=== PATIENT | female | born 1985 | race Caucasian/White ===

== ENCOUNTER 2019-04-12 14:06 | Emergency (ER) | payer OTHER ==
[~2019-04-12] VITALS: Ht 162.6 cm; Wt 56.4 kg
[2019-04-12 14:08] VITALS: BP 146/63; PULSE 59; RESP 18; Ht 162.6 cm; Wt 56.4 kg
[2019-04-12] MEDS ORDERED: morphine 2 MG INJ IV STA (14:44)
[2019-04-12] MEDS ORDERED: FAMOTIDINE 20 MG INJ IV STA (14:44)
[2019-04-12] MEDS ORDERED: ONDANSETRON 4 MG INJ IV STA (14:44)
[2019-04-12] MEDS ORDERED: ACET500C5 PO (16:13)
[2019-04-12] MEDS ORDERED: PANT20TA2 PO (16:13)
[2019-04-12] MEDS ORDERED: ONDA8TAB14 PO (16:13)
--- NOTE | 2019-04-12 16:17 | ERD ---
ER Documentation Chief Complaint Chief Complaint abd pain x 1 week with nausea HPI 34-year-old female presents with left epigastric pain for last week associate with nausea. She has vomiting, lower abdominal pain, right-sided abdominal pain. Patient states that she has a history of gastritis. Patient denies any family history, inciting events. Patient denies . ROS All systems reviewed and are negative except as per history of present illness. Medications Home Meds Active Scripts Ondansetron (Ondansetron Odt) 8 Mg Tab.rapdis, 8 MG PO Q6H PRN for NAUSEA AND/OR VOMITING, #10 TAB Prov:BRAD THOMPSON MD 04/12/19 Acetaminophen* (Tylophen*) 500 Mg Capsule, 1 CAP PO Q6H PRN for PAIN AND OR ELEVATED TEMP, #15 CAP Prov:BRAD THOMPSON MD 04/12/19 Pantoprazole* (Protonix*) 20 Mg Tablet.dr, 20 MG PO DAILY, #30 TAB Prov:BRAD THOMPSON MD 04/12/19 PMhx/Soc Medical and Surgical Hx: pt denies Medical Hx History of Surgery: Yes (left breast) Hx Alcohol Use: No Hx Substance Use: No Hx Tobacco Use: No Smoking Status: Never smoker FmHx Family History: No diabetes, No coronary disease, No other Physical Exam Vitals Vital Signs Date Temp Pulse Resp B/P (MAP) Pulse Ox O2 O2 Flow FiO2 Time Delivery Rate 04/12/19 99.1 59 18 146/63 99 14:08 (90) Physical Exam Const: No acute distress Head: Atraumatic Eyes: Normal Conjunctiva ENT: Normal External Ears, Nose and Mouth. Neck: Full range of motion. No meningismus. Resp: Clear to auscultation bilaterally Cardio: Regular rate and rhythm, no murmurs Abd: Soft, mild epigastric tenderness. No tension McBurney's point no Gonzales sign. No rebound or masses. Non distended. Normal bowel sounds Skin: No petechiae or rashes Back: No midline or flank tenderness Ext: No cyanosis, or edema Neur: Awake and alert Psych: Normal Mood and Affect Result Diagram: 04/12/19 1457 04/12/19 1457 Results 24 hrs Laboratory Tests Test 04/12/19 14:57 04/12/19 15:03 White Blood Count 10.0 10^3/ul Red Blood Count 4.52 10^6/ul Hemoglobin 13.3 g/dl Hematocrit 40.5 % Mean Corpuscular Volume 89.6 fl Mean Corpuscular Hemoglobin 29.4 pg Mean Corpuscular Hemoglobin Concent 32.8 g/dl Red Cell Distribution Width 13.2 % Platelet Count 294 10^3/UL Mean Platelet Volume 8.9 fl Immature Granulocytes % 0.200 % Neutrophils % % Lymphocytes % % Monocytes % % Eosinophils % % Basophils % % Nucleated Red Blood Cells % 0.0 /100WBC Immature Granulocytes # 0.020 10^3/ul Neutrophils # 10^3/ul Lymphocytes # 10^3/ul Monocytes # 10^3/ul Eosinophils # 10^3/ul Basophils # 10^3/ul Nucleated Red Blood Cells # 10^3/ul Urine Color STRAW Urine Clarity SLIGHTLY CLOUDY Urine pH 6.0 Urine Specific [place] 1.004 Urine Ketones NEGATIVE mg/dL Urine Nitrite NEGATIVE mg/dL Urine Bilirubin NEGATIVE mg/dL Urine Urobilinogen NEGATIVE mg/dL Urine Leukocyte Esterase NEGATIVE Mariano/ul Urine Microscopic RBC 1 /HPF Urine Microscopic WBC 0 /HPF Urine Squamous Epithelial Cells FEW /HPF Urine Bacteria FEW /HPF Urine Hemoglobin NEGATIVE mg/dL Urine Glucose NEGATIVE mg/dL Urine Total Protein NEGATIVE mg/dl Sodium Level 140 mmol/L Potassium Level 4.1 mmol/L Chloride Level 104 mmol/L Carbon Dioxide Level 27 mmol/L Anion Gap 9 Blood Urea Nitrogen 13 mg/dl Creatinine 0.76 mg/dl Est Glomerular Filtrat Rate mL/min > 60 mL/min Glucose Level 90 mg/dl Calcium Level 9.4 mg/dl Total Bilirubin 0.4 mg/dl Direct Bilirubin 0.00 mg/dl Indirect Bilirubin 0.4 mg/dl Aspartate Amino Transf (AST/SGOT) 22 IU/L Alanine Aminotransferase (ALT/SGPT) 27 IU/L Alkaline Phosphatase 64 IU/L Total Protein 7.8 g/dl Albumin 4.4 g/dl Globulin 3.40 g/dl Albumin/Globulin Ratio 1.29 Lipase 82 U/L POC Beta HCG, Qualitative NEGATIVE Current Medications Medications Dose Sig/Roger Start Time Status Last (Trade) Ordered Route PRN Stop Time Admin Dose Reason Admin Morphine 2 mg ONCE STAT 04/12/19 DC 04/12/19 Sulfate IV 14:44 15:10 (morphine) 04/12/19 14:46 Ondansetron 4 mg ONCE STAT 04/12/19 DC 04/12/19 HCl (Zofran IV 14:44 15:02 Inj) 04/12/19 14:46 Famotidine 20 mg ONCE STAT 04/12/19 DC 04/12/19 (Pepcid Iv) IV 14:44 15:02 04/12/19 14:46 Procedures/MDM CBC, CMP, lipase, urine and hCG negative for acute abnormalities. Patient was given Pepcid 20 mg IV, morphine 2 more grams IV, Zofran. Patient had a benign abdomen and felt much better after observation treatment. Patient has no signs of appendicitis, obstruction, surgical abdomen, hepatobiliary disease, additional concerning signs or symptoms. Will treat with Protonix, Tylenol, recommendations for bland diet, primary care follow-up and return precautions. Patient was advised she may need specialty evaluation for persistent symptoms despite treatment. The patient was stable with no new complaints during the ER course. Clinically, there is no current evidence to suggest meningitis, sepsis, acute abdomen, pneumonia, stroke, acute coronary syndrome, pulmonary embolism, aortic dissection or any other emergent condition appearing to require further evaluation or hospitalization. Patient counseled regarding my diagnostic impression and care plan. Prior to discharge all questions answered. Pt agrees with treatment plan and understands strict return precautions. Pt is instructed to follow up with primary care provider within 24-48 hours. Precautionary instructions provided including instructions to return to the ER if not improving or for any worsening or changing symptoms or concerns. Disclaimer: Inadvertent spelling and grammatical errors are likely due to EHR/dictation software use and do not reflect on the overall quality of patient care. Also, please note that the electronic time recorded on this note does not necessarily reflect the actual time of the patient encounter. Departure Diagnosis: Primary Impression: Gastritis Gastritis type: unspecified gastritis Chronicity: unspecified Gastritis bleeding: without bleeding Qualified Codes: K29.70 - Gastritis, unspecified, without bleeding Condition: Stable Patient Instructions: Gastritis (Adult) [facility] Usted se guzman hecho un examen mdico de control que le indica que no est en lauren condicin que requiera tratamiento urgente en el Departamento de Emergencia. Un estudio ms profundo y el tratamiento de wolfe condicin pueden esperar sin ningn riesgo hasta que usted sea atendida/o en el consultorio de wolfe mdico o lauren clnica. Es responsabilidad suya arreglar lauren rachid para el seguimiento del jeremiah. MANEJO DE CONDICIONES NO URGENTES EN EL FUTURO 1) Si usted tiene un mdico de atencin primaria: Usted debera llamar a wolfe mdico de atencin primaria antes de venir al departamento de emergencia. Despus de las horas de consultorio, wolfe doctor o wolfe asociado/a est disponible por telfono. El mdico o enfermero de sherice en el servicio telefnico puede asesorarle por brandon medio para atender el problema, o jeremiah contrario se puede programar lauren rachid. 2) Si usted no tiene un mdico de atencin primaria: Llame al mdico o clnica de referencia que aparece abajo derrick las horas de consultorio para hacer lauren rachid para que le vean. CLINICAS: [facility] [phone] [facility] [phone] [facility]. [facility] [phone] [address] [facility]. [facility] [phone] [facility] [place] [phone] [facility] [phone] [address] Additional Instructions: Labs normal today. Suspect gastritis. Eat bland foods. Avoid acidic or spicy foods or alcohol or ibuprofen. See primary doctor for follow-up and possible specialty referral. Recheck otherwise for fevers, vomiting, blood, worsening pain, new worsening symptoms. BRAD THOMPSON MD Apr 12, 2019 16:17
== END 2019-04-12 16:50 | disposition home or self-care (01) ==
LOC: FTE 14:06
DX: K29.70 Gastritis, unspecified, without bleeding (principal)
CPT/HCPCS: 36415; 80053; 81001; 81003; 81025; 83690; 85025; 96374; 96375; 99284; J2270; J2405

== ENCOUNTER 2019-04-18 16:43 | Emergency (ER) | payer OTHER ==
[~2019-04-18] VITALS: Ht 154.9 cm; Wt 55.9 kg
[~2019-04-18 16:43] MED LIST: ACET500C5 PO; MAGN400O19 PO; METO10TA92 PO; ONDA8TAB14 PO; PANT20TA2 PO; TRAM50TA2 PO
[2019-04-18 16:55] VITALS: Ht 154.9 cm; Wt 55.9 kg
[2019-04-18] MEDS ORDERED: ONDANSETRON 4 MG INJ IV STA (17:35)
[2019-04-18] MEDS ORDERED: SOD CHLORIDE 0.9% 1,000 ML IV STA (17:35)
[2019-04-18] MEDS ORDERED: morphine 2 MG INJ IV STA (17:35)
[2019-04-18] MEDS ORDERED: FAMOTIDINE 20 MG INJ IV STA (17:35)
[2019-04-18] MEDS ORDERED: IOHEXOL 300MG/ML 150 ML BTL ONE (18:42)
[2019-04-18] MEDS ORDERED: SOD CHLORIDE 0.9% 100 ML ONE (18:42)
[2019-04-18] MEDS ORDERED: HYDROmorphONE 0.5 MG/0.5 ML SYG IV STA ×2 (18:47→19:52)
--- NOTE | 2019-04-18 19:59 | ERD ---
ER Documentation Chief Complaint Chief Complaint epigastric pain & nausea after eating to day, dx:gastritis last week, HPI 34-year-old female presents with epigastric pain worsening over the last day. She was seen by me for gastritis approximately 5 days ago. She had normal labs at that time she is taking Protonix twice a day as directed by her primary doctor. She has a gastroenterology appointment pending but not until June. She denies any vomiting, fevers, lower abdominal pain. Pain is burning and worse after eating. Patient has a remote history of gastritis. She has an additional complaint of no bowel movement for 3 days and last bowel movement was dark. ROS All systems reviewed and are negative except as per history of present illness. Medications Home Meds Active Scripts Metoclopramide* (Reglan*) 10 Mg Tablet, 10 MG PO Q6 PRN for NAUSEA AND/OR VOMITING, #20 TAB Prov:BRAD THOMPSON MD 04/18/19 Tramadol HCl (Tramadol HCl) 50 Mg Tablet, 50 MG PO Q4 PRN for PAIN, #18 TAB Prov:BRAD THOMPSON MD 04/18/19 Magnesium Hydroxide* (Milk Of Magnesia*) 400 Mg/5 Ml Oral.susp, 30 ML PO BID for 7 Days, ML Prov:BRAD THOMPSON MD 04/18/19 Ondansetron (Ondansetron Odt) 8 Mg Tab.rapdis, 8 MG PO Q6H PRN for NAUSEA AND/OR VOMITING, #10 TAB Prov:BRAD THOMPSON MD 04/12/19 Acetaminophen* (Tylophen*) 500 Mg Capsule, 1 CAP PO Q6H PRN for PAIN AND OR ELEVATED TEMP, #15 CAP Prov:BRAD THOMPSON MD 04/12/19 Pantoprazole* (Protonix*) 20 Mg Tablet.dr, 20 MG PO DAILY, #30 TAB Prov:BRAD THOMPSON MD 04/12/19 Allergies Allergies: Coded Allergies: No Known Allergy (Unverified , 04/18/19) PMhx/Soc History of Surgery: Yes (left breast) Hx Miscellaneous Medical Probl: Yes (hepatits A) Hx Alcohol Use: No Hx Substance Use: No Hx Tobacco Use: No Smoking Status: Never smoker FmHx Family History: No diabetes, No coronary disease, No other Physical Exam Vitals Vital Signs Date Temp Pulse Resp B/P (MAP) Pulse Ox O2 O2 Flow FiO2 Time Delivery Rate 04/18/19 98.3 72 17 118/76 99 Room Air 19:16 (90) 04/18/19 98.2 70 18 147/79 100 16:55 (101) Physical Exam Const: No acute distress Head: Atraumatic Eyes: Normal Conjunctiva ENT: Normal External Ears, Nose and Mouth. Neck: Full range of motion. No meningismus. Resp: Clear to auscultation bilaterally Cardio: Regular rate and rhythm, no murmurs Abd: Soft, under epigastric area. No tenderness McBurney's point no Gonzales sign. No rebound or masses. Non distended. Normal bowel sounds Skin: No petechiae or rashes Back: No midline or flank tenderness Ext: No cyanosis, or edema Neur: Awake and alert Psych: Normal Mood and Affect Result Diagram: 04/18/19 1744 04/18/19 1744 Results 24 hrs Laboratory Tests Test 04/18/19 17:44 04/18/19 17:50 04/18/19 19:42 White Blood Count 10.1 10^3/ul Red Blood Count 4.49 10^6/ul Hemoglobin 13.0 g/dl Hematocrit 40.2 % Mean Corpuscular Volume 89.5 fl Mean Corpuscular Hemoglobin 29.0 pg Mean Corpuscular Hemoglobin Concent 32.3 g/dl Red Cell Distribution Width 13.1 % Platelet Count 268 10^3/UL Mean Platelet Volume 8.8 fl Immature Granulocytes % 0.100 % Neutrophils % % Lymphocytes % % Monocytes % % Eosinophils % % Basophils % % Nucleated Red Blood Cells % 0.0 /100WBC Immature Granulocytes # 0.010 10^3/ul Neutrophils # 10^3/ul Lymphocytes # 10^3/ul Monocytes # 10^3/ul Eosinophils # 10^3/ul Basophils # 10^3/ul Nucleated Red Blood Cells # 10^3/ul Sodium Level 139 mmol/L Potassium Level 4.3 mmol/L Chloride Level 107 mmol/L Carbon Dioxide Level 25 mmol/L Anion Gap 7 Blood Urea Nitrogen 13 mg/dl Creatinine 0.83 mg/dl Est Glomerular Filtrat Rate mL/min > 60 mL/min Glucose Level 104 mg/dl Calcium Level 9.2 mg/dl Total Bilirubin 0.4 mg/dl Direct Bilirubin 0.00 mg/dl Indirect Bilirubin 0.4 mg/dl Aspartate Amino Transf (AST/SGOT) 21 IU/L Alanine Aminotransferase (ALT/SGPT) 22 IU/L Alkaline Phosphatase 63 IU/L Total Protein 7.4 g/dl Albumin 4.1 g/dl Globulin 3.30 g/dl Albumin/Globulin Ratio 1.24 Lipase 123 U/L Stool Occult Blood NEGATIVE POC Beta HCG, Qualitative NEGATIVE Current Medications Medications Dose Sig/Roger Start Time Status Last (Trade) Ordered Route PRN Stop Time Admin Dose Reason Admin Sodium 1,000 ml @ Q1H STAT 04/18/19 DC 04/18/19 Chloride 1,000 mls/hr IV 17:35 04/18/19 17:49 18:34 Morphine 2 mg ONCE STAT 04/18/19 DC 04/18/19 Sulfate IV 17:35 04/18/19 17:49 (morphine) 17:36 Ondansetron 4 mg ONCE STAT 04/18/19 DC 04/18/19 HCl (Zofran IV 17:35 04/18/19 17:49 Inj) 17:36 Famotidine 20 mg ONCE STAT 04/18/19 DC 04/18/19 (Pepcid Iv) IV 17:35 04/18/19 17:49 17:36 IV Flush 10 ml STK-MED 04/18/19 DC 04/18/19 (NS 10 ml) ONCE .ROUTE 18:42 04/18/19 19:00 18:43 Sodium 100 ml @ ud STK-MED 04/18/19 DC 04/18/19 Chloride ONCE .ROUTE 18:42 04/18/19 19:00 18:43 Iohexol 150 ml STK-MED 04/18/19 DC 04/18/19 (Omnipaque ONCE .ROUTE 18:42 04/18/19 18:59 300mg/ ml) 18:43 0.5 mg ONCE STAT 04/18/19 DC 04/18/19 Hydromorphone IV 18:47 04/18/19 19:08 HCl 18:48 (Dilaudid) 0.5 mg ONCE STAT 04/18/19 DC Hydromorphone IV 19:52 04/18/19 HCl 19:53 (Dilaudid) 10 mg ONCE ONCE 04/18/19 Metoclopramid IV 20:00 04/18/19 e HCl 20:01 (Reglan) Procedures/MDM CBC is normal. CMP shows no acute abnormalities. hCG is negative. Patient was given Pepcid 20 mg IV, 1 L normal saline IV. She was given morphine milligrams and Dilaudid 0.5 mg IV for pain throughout the ED course. Given Zofran or Reglan for nausea as well. H. pylori sent upon patient request. Patient presents with epigastric pain worsening over the last 3 days. Is been the last week. CT abdomen pelvis with IV contrast performed for pain despite proton pump inhibitors centimeters normal by the radiologist. Patient has no sign of active bleeding as a guaiac test of the stool is negative. Patient signs and symptoms consistent with gastritis. Will add Reglan as well as milk of magnesia and tramadol for epigastric pain. She is advised to follow-up with primary doctor and continue follow-up with gastroenterology. She should return for fevers, vomiting, blood, new worsening symptoms or with primary doctor and gastroenterology as directed. The patient was stable with no new complaints during the ER course. Clinically, there is no current evidence to suggest meningitis, sepsis, acute abdomen, pneumonia, stroke, acute coronary syndrome, pulmonary embolism, aortic dissection or any other emergent condition appearing to require further evaluation or hospitalization. Patient counseled regarding my diagnostic impression and care plan. Prior to discharge all questions answered. Pt agrees with treatment plan and understands strict return precaution s. Pt is instructed to follow up with primary care provider within 24-48 hours. Precautionary instructions provided including instructions to return to the ER if not improving or for any worsening or changing symptoms or concerns. Disclaimer: Inadvertent spelling and grammatical errors are likely due to EHR/dictation software use and do not reflect on the overall quality of patient care. Also, please note that the electronic time recorded on this note does not necessarily reflect the actual time of the patient encounter. Departure Diagnosis: Primary Impression: Abdominal pain Abdominal location: epigastric Qualified Codes: R10.13 - Epigastric pain Condition: Stable Patient Instructions: Abdominal Pain, Gastritis Vs. Ulcer Referrals: DOCTOR,NOT ON STAFF (PCP) Additional Instructions: Symptoms consistent with gastritis. All examinations normal today. See gastroenterology as scheduled. Recheck for blood, fevers, vomiting, new worsening symptoms. BRAD THOMPSON MD Apr 18, 2019 19:59
[2019-04-18] MEDS ORDERED: METOCLOPRAMIDE 10 MG INJ IV ONE (20:00)
[2019-04-18 21:07] VITALS: BP 116/73; PULSE 64; RESP 16
== END 2019-04-18 21:14 | disposition home or self-care (01) ==
LOC: FTE 16:43
DX: R10.13 Epigastric pain (principal); R11.0 Nausea
CPT/HCPCS: 36415; 74177; 80053; 81001; 81025; 82270; 83690; 85025; 96361; 96374; 96375; 96376; 99285; J1170; J2270; J2405; J2765; J7030; Q9967